=== PATIENT | female | born 1975 | race Caucasian/White ===

== ENCOUNTER 2017-06-25 20:28 | Emergency (ER) | payer MEDICAID ==
[2017-06-25 20:44] VITALS: BP 140/89
--- NOTE | 2017-06-25 20:50 | UC ---
Throat Pain/Nasal Sigifredo HPI - HPI Summary HPI Summary: Patient has had a sore throat accompanied by nausea and cough for 24 hours. denies other symtpoms. - History of Current Complaint Chief Complaint: UCGeneralIllness Stated Complaint: SORE THROAT Time Seen by Provider: 06/25/17 20:32 Hx Obtained From: Patient Hx Last Menstrual Period: tubal ?: No Onset/Duration: Sudden Onset, Lasting Hours Severity: Moderate - Allergies/Home Medications Allergies/Adverse Reactions: Allergies Allergy/AdvReac Type Severity Reaction Status Date / Time Lisinopril Allergy See Comment Verified 06/25/17 20:44 Home Medications: Home Medications Atorvastatin* [Lipitor*] 10 mg PO 1700 06/25/17 [History Confirmed 06/25/17] Hydrochlorothiazide TAB* [Hydrodiuril TAB*] 25 mg PO DAILY 06/25/17 [History Confirmed 06/25/17] QUEtiapine TAB* [SEROquel TAB*] 200 mg PO BEDTIME 06/25/17 [History Confirmed ] PMH/Surg Hx/FS Hx/Imm Hx Previously Healthy: No - chronic heb C, heroine use - Surgical History Surgical History: Yes Surgery Procedure, Year, and Place: Gall bladder. Tubal. Left ORIF. Left index finger amputation - Family History Known Family History: Positive: Hypertension - Social History Alcohol Use: Occasionally Substance Use Type: Heroin Substance Use Comment - Amount & Last Used: 1-2 times a week Smoking Status (MU): Heavy Every Day Tobacco Smoker Amount Used/How Often: 1 ppd Review of Systems Constitutional: Negative Skin: Negative Eyes: Negative ENT: Sore Throat Respiratory: Cough Cardiovascular: Negative Gastrointestinal: Nausea Genitourinary: Negative Motor: Negative Neurovascular: Negative Musculoskeletal: Negative Neurological: Negative Psychological: Negative All Other Systems Reviewed And Are Negative: Yes Physical Exam Triage Information Reviewed: Yes Appearance: Well-Appearing, Well-Nourished, Pain Distress Vital Signs: Initial Vital Signs Temp 98.7 F 06/25/17 20:39 Pulse 71 06/25/17 20:39 Resp 14 06/25/17 20:39 BP 140/89 06/25/17 20:39 Vital Signs Reviewed: Yes Eye Exam: Normal ENT: Positive: Pharyngeal erythema, Nasal congestion, TMs normal Dental Exam: Normal Neck exam: Normal Respiratory: Positive: Chest non-tender, Normal breath sounds, Wheezing, Inspiration Cardiovascular Exam: Normal Cardiovascular: Positive: RRR, No Murmur, Pulses Normal Abdominal Exam: Normal Bowel Sounds: Positive: Present Musculoskeletal Exam: Normal Musculoskeletal: Positive: Strength Intact, ROM Intact, No Edema Neurological Exam: Normal Neurological: Positive: Alert, Muscle Tone Normal Psychological Exam: Normal Skin Exam: Normal Throat Pain/Nasal Course/Dx - Course Course Of Treatment: hx obtained, exam performed ,meds reviewed, rapid strep obtained and is negative, treated for allergic rhinitis - Differential Dx/Diagnosis Differential Diagnosis/HQI/PQRI: Laryngitis, Otitis Media, Pharyngitis, Sinusitis, URI Provider Diagnoses: allergic rhinitis. pharyngitis Discharge - Discharge Plan Condition: Stable Disposition: HOME Prescriptions: predniSONE TAB* [Deltasone TAB*] 40 mg PO DAILY #14 tab Patient Education Materials: Pharyngitis (ED) Additional Instructions: 1. take the medication as prescribed. 2. Increase your fluid intake 3. Daily claritin or zyrtec to help with the symptoms
== END 2017-06-25 21:15 | disposition home or self-care (01) ==
LOC: MERGE 20:28 → UCCORT 20:28
DX: J30.9 Allergic rhinitis, unspecified (principal); J02.9 Acute pharyngitis, unspecified; B18.2 Chronic viral hepatitis C; F11.90 Opioid use, unspecified, uncomplicated; F17.210 Nicotine dependence, cigarettes, uncomplicated
CPT/HCPCS: 87651; 99202; G0463